=== PATIENT | female | born 1945 | race Caucasian/White ===

== ENCOUNTER 2016-11-17 08:04 | Day surgery (SDC) | payer MEDICARE, OTHER ==
[~2016-11-17] VITALS: Ht 162.6 cm; Wt 88.5 kg
[~2016-11-17 08:04] MED LIST: ASAB PO; COREG3 PO; COREG6 PO; K500 PO; KLOR-CON M2020 MEQ PO; L20 PO; LIDOCAINE IV; LIDODERM TOP; LIPITOR20 PO; LORTAB10 PO; LYRICA75 PO; MULTIVITAMIN; NEUR300 PO; NOLV10 PO; NORCO1 TAB PO; PREDFORTE OPH; PREDNISOLO15 MG/5 M1 PO; PRIN2.5 PO; SPIRO25 PO; TAMOXIFEN20 M1 PO; VITD PO; X25 PO; ZOL50 PO
== END 2016-11-17 23:59 | disposition home or self-care (01) ==
LOC: SDC 08:04
PROVIDERS: Ophthalmology
PROC: 085J3ZZ Destruction of Right Lens, Percutaneous Approach (ICD-10-PCS; principal; 2016-11-17 13:15)
DX: H57.8 Other specified disorders of eye and adnexa (principal); Z88.5 Allergy status to narcotic agent; Z79.82 Long term (current) use of aspirin; Z79.899 Other long term (current) drug therapy
CPT/HCPCS: A9270-GY